=== PATIENT | female | born 2005 | race Caucasian/White ===

== ENCOUNTER 2024-05-02 08:24 | Outpatient (AMB) | payer MEDICAID, SELFPAY ==
[2024-05-02 08:36] VITALS: BP 113/78; PULSE 92; RESP 16; TEMP 36.8; O2SAT 99; BMI 34.0
--- NOTE | 2024-05-02 08:36 | AMB.GYNCLNOT ---
Vital Signs 05/02/24 08:36 Height 1.24 m Height Method Stated Weight 52.673 kg Weight Measurement Method Standing Scale BMI 34.0 BP 113/78 Blood Pressure Source Automatic Cuff Blood Pressure Location Left Upper Arm Position Sitting Respiration 16 Pulse 92 Pulse Source Monitor Temp 98.2 F Temp Source Oral Pulse Oximetry (%) 99 Oxygen Delivery Method Room Air Allergies/Home Meds Allergies & Medications Allergies No Known Allergies Allergy (Verified 05/02/24 08:37) Medication Reconciliation No Known Home Medications 05/02/24 [History Confirmed 05/02/24] Intake Visit Data Collection New Patient or Established: Established Patient (seen at [facility] within 3 years) Reason for Visit:: ER Follow up Ovarian Cysts Seen by Clinical Staff ONLY (RN/MA): No Community Development Technician Required: No Do You Feel Safe at Home: Yes Authorities Contacted: N/A PCP or OBGYN visit in last 3 months: Yes Date of Last PCP or OBGYN visit: 04/16/24 Hx Now: No Are you currently on any form of Control: No Last menstrual period: 04/25/24 Pain Present Currently: No Pain Scale Used: Lantigua-Nina/Numerical Pain scale:: 0 Smoking Status Smoking Status: Never smoker 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 1. Little interest or pleasure in doing things: not at all 2. Feeling down, depressed, or hopeless: not at all Total score: 0 PHQ-9 3. Trouble falling or staying asleep, or sleeping too much: Not at all 4. Feeling tired or having little energy: Not at all 5. Poor appetite or overeating: Not at all 6. Feeling bad about yourself - or that you are a failure or have let yourself or your family down: Not at all 7. Trouble concentrating on things, such as reading the newspaper or watching television: Not at all 8. Moving or speaking so slowly that other people could have noticed? - Or the opposite - being so fidgety or restless that you have been moving around a lot more than usual: not at all 9. Thoughts that you would be better off or of hurting yourself in some way: Not at all Total score: 0 If you checked off any problems, how difficult have these problems made it for you to do your work, take care of things at home, or get along with other people?: not difficult at all Source: Developed by Drs. Dick Tang, Mesha Cobb, Raymon Vasquez and colleagues, with an educational bipin from [employer]. Depression screen completed yes Social History Living Situation History Marital Status: Single Lives With: Family Housing: House Tobacco History Smoking Status: Never smoker Alcohol History Alcohol Intake: Current Alcohol Intake Frequency: holidays/special occasions only Domestic Abuse History Do You Feel Safe at Home: Yes Past Medical History Past Medical History Have you ever been diagnosed with any of the following: Cardiology Problems Congestive Heart Failure: No Respiratory Problems Chronic Obstructive Pulmonary Disease (COPD): No Genital/Urinary Problems Renal Disease: No Endocrine Problems Diabetes Mellitus Type 1: No Diabetes Mellitus Type 2: No Other Problems Anesthesia Reactions: No Organ Transplant: No MRSA: No VRSA: No Vancomycin-Resistant Enterococci: No Clostridium Difficile: No Cancer: No History of Present Illness HPI Narrative History of Present Illness The patient presents with a history of acute pelvic pain that occurred at 5 a.m. The pain was localized to the lower abdominal region. She initially sought treatment at [facility], where cysts were identified, but no medication was prescribed. Due to persistent pain, she subsequently visited [facility] on the same day. At [facility], both ultrasound and CT scans were performed, revealing cysts on both ovaries, described as little balls with piercings. The pain episode occurred right after her menstrual period. This is the first occurrence of such pain for the patient. Associated symptoms include nausea and vomiting. The patient denies any urinary tract infection symptoms. Upon examination, the pain was noted to be more pronounced on the left side. The patient has a history of one uncomplicated resulting in a child who is now 2-3 years old. She denies any history of fertility issues or difficulty becoming . The patient is not currently using any control, thyroid medication, or other medications. Review of Systems Review of Systems Systems Reviewed: All systems reviewed, normal except as documented Exam General Limitations: no limitations General Appearance: alert, in no apparent distress, comfortable, cooperative, healthy appearing, well developed and well groomed Head Head exam: atraumatic, normocephalic and normal inspection Neck Neck exam: Present normal inspection, full ROM and trachea midline Chest Chest inspection: Present normal inspection and symmetric chest wall rise Abdominal Abdominal exam: Present soft and normal bowel sounds Extremities Extremities exam: Present normal inspection and full ROM Back Back exam: Present normal inspection and full ROM Psych Psychiatric exam: Present normal affect and normal mood Skin Skin exam: Present warm, dry, intact and normal color Assessment & Plan Diagnosis / Problem List (1) Bilateral ovarian cysts: Status: Acute Plan: Ovarian Cysts Patient presented with acute lower abdominal pain at 5 AM, prompting ER visits to both [facility] and [facility] on the same day. Both facilities performed imaging studies (ultrasound and CT scan) which revealed cysts on both ovaries. The cysts were described as little ball[s] with piercings in it. The pain occurred right after the patient's menstrual period. Given the bilateral nature of the cysts and the timing of pain, PCOS was suggested as a possible diagnosis by the ER. However, the patient has no history of fertility issues, which is atypical for PCOS. On physical examination, the left side was more painful, but pressure on the right side elicited more discomfort, suggesting the right-sided cyst may be larger. The patient also reported associated nausea and vomiting. - Order blood tests to evaluate hormone levels - Obtain and review imaging studies from [facility] - Schedule follow-up appointment in 2 weeks to review test results and develop a treatment plan - Consider low-dose control pills (e.g., Judith) for cyst prevention after test results are reviewed - Monitor cysts with ultrasounds every 3 months if no immediate intervention is required - Surgical intervention to be considered only if pain recurs monthly for 2-3 months, becomes severe enough to warrant repeated ER visits, cysts show significant growth, or if the patient is trying to conceive Additional Assessment Medical Decision Making Stefanie Dorsey is a young adult female with a history of one , presenting with bilateral lower abdominal pain that started after her recent menstrual period. The patient was initially seen at [facility], where cysts were identified, and subsequently at [facility] on the same day due to persistent pain. Both ERs performed imaging studies, with [facility] conducting both ultrasound and CT scan. The findings suggest bilateral ovarian cysts, described as little balls with piercings on both ovaries. The differential diagnosis includes Polycystic Ovary Syndrome (PCOS), which was suggested by the [facility] ER, and functional ovarian cysts. However, PCOS is less likely given the patient's history of uncomplicated and the typical onset of PCOS in adolescence. The clinician plans to review imaging from [facility] and perform hormone blood tests to further evaluate the condition. The physical examination revealed more tenderness on the left side, suggesting a possibly larger cyst on that side. The clinician is considering watchful waiting with periodic ultrasounds every 3 months if the cysts remain stable, as surgery is typically reserved for persistent, severe pain or fertility concerns. Preventive Medicine: Patient Counseling: Sexual Health, Contraception, and Family Planning Your sexual and reproductive health is important, and there are several steps you can take to protect yourself and make informed decisions. Safe Sex and STD Prevention: ? Condom Use: Consistent use of condoms during vaginal, anal, and oral sex reduces the risk of sexually transmitted diseases (STDs), including HIV. ? Regular Testing: Routine STD testing is important, especially if you or your partner have multiple partners. Early detection helps prevent complications. ? Open Communication: Discuss your sexual health and testing history with your partner(s) to make safer choices together. Contraceptive Options: ? Barrier Methods: Condoms (male and female) provide protection against both and STDs. ? Hormonal Methods: control pills, patches, vaginal rings, injections, and implants prevent when used consistently and correctly. ? Long-Acting Reversible Contraception (LARC): IUDs (hormonal and non-hormonal) and implants provide long-term, highly effective protection. ? Permanent Contraception: Options like tubal ligation or vasectomy are available for those who do not wish to have more children. Emergency Contraception (EC): ? Emergency contraception (e.g., Plan B or Umm) can be used after unprotected sex or contraceptive failure and is most effective when taken within 72 hours (up to 5 days for some options). ? EC does not protect against STDs, so follow up with testing if exposure is a concern. Family Planning and Pre- Health: ? If you are planning to become , begin taking folic acid 1 mg daily to reduce the risk of neural tube defects. ? Avoid teratogenic drugs (medications that can harm a developing baby) and discuss any prescription medications with your healthcare provider before . ? It is recommended to space pregnancies at least 18 months apart to support your health and reduce -related risks. Office Procedures OB Clinic LOC & Office Proc's Nursing/Assessment Patient Status: Established Patient OB Clinic Nursing Assessment: BP Monitoring, Medication Reconciliation, Update PMH in EMR and Vital Signs OB Clinic Coordination of Care: Consent,records obtained, informed consent, Education Simp Pt/Fam, Lab and Imaging orders and Staff clarify orders Established Patient Charge Established Patient Point Assignment: 90 Established Patient Point Charge: EP Level 3 (80-115)
== END 2024-05-02 08:50 | disposition home or self-care (01) ==
LOC: HODSOBC 08:24
PROVIDERS: PCP Obstetrics & Gynecology; Referring Provider Obstetrics & Gynecology; Supervising Provider Obstetrics & Gynecology; Visit Provider Obstetrics & Gynecology
DX: N83.202 Unspecified ovarian cyst, left side (principal); N83.201 Unspecified ovarian cyst, right side
CPT/HCPCS: 99213; G0463

== ENCOUNTER 2024-05-24 15:31 | Outpatient (AMB) | payer MEDICAID, SELFPAY ==
--- NOTE | 2024-05-24 15:32 | AMB.GYNCLNOT ---
Vital Signs 05/24/24 16:02 Height 1.24 m Height Method Stated Weight 91.399 kg Weight Measurement Method Standing Scale BMI 59.4 BP 129/83 Blood Pressure Source Automatic Cuff Blood Pressure Location Left Upper Arm Position Sitting Respiration 16 Pulse 105 H Pulse Source Monitor Temp 96.3 F L Temp Source Oral Pulse Oximetry (%) 99 Oxygen Delivery Method Room Air Allergies/Home Meds Allergies & Medications Allergies No Known Allergies Allergy (Verified 05/24/24 16:04) Medication Reconciliation No Known Home Medications 05/02/24 [History Confirmed 05/24/24] Intake Visit Data Collection New Patient or Established: Established Patient (seen at [facility] within 3 years) Reason for Visit:: Telemed- Lab results Consent obtained for Telemed Visit: Yes Seen by Clinical Staff ONLY (RN/MA): No Bearingizer Required: No Do You Feel Safe at Home: Yes Authorities Contacted: N/A PCP or OBGYN visit in last 3 months: Yes Hx Now: No Are you currently on any form of Control: No Pain Present Currently: No Pain Scale Used: Lantigua-Nina/Numerical Pain scale:: 0 Smoking Status Smoking Status: Never smoker Questioned Documents Examiner history Questioned Documents Examiner History Menstrual regularity: regular Flow: normal Monthly: Yes Menopausal: No Currently sexually active: Yes Questionnaires Covid-19 Vaccine Questionnaire Has patient been vacinated for Covid-19 Have you been vacinated for Covid-19: Yes PHQ-9 PHQ-2 Over the last 2 weeks, how often have you been bothered by any of the following problems? 1. Little interest or pleasure in doing things: not at all 2. Feeling down, depressed, or hopeless: not at all Total score: 0 PHQ-9 3. Trouble falling or staying asleep, or sleeping too much: Not at all 4. Feeling tired or having little energy: Not at all 5. Poor appetite or overeating: Not at all 6. Feeling bad about yourself - or that you are a failure or have let yourself or your family down: Not at all 7. Trouble concentrating on things, such as reading the newspaper or watching television: Not at all 8. Moving or speaking so slowly that other people could have noticed? - Or the opposite - being so fidgety or restless that you have been moving around a lot more than usual: not at all 9. Thoughts that you would be better off or of hurting yourself in some way: Not at all Total score: 0 If you checked off any problems, how difficult have these problems made it for you to do your work, take care of things at home, or get along with other people?: not difficult at all Source: Developed by Drs. Dick Tang, Mesha Cobb, Raymon Vasquez and colleagues, with an educational bipin from [employer]. Depression screen completed yes Social History Living Situation History Lives With: Family Housing: House Tobacco History Smoking Status: Never smoker Alcohol History Alcohol Intake: Current Alcohol Intake Frequency: holidays/special occasions only Domestic Abuse History Do You Feel Safe at Home: Yes Past Medical History Past Medical History Have you ever been diagnosed with any of the following: Cardiology Problems Congestive Heart Failure: No Respiratory Problems Chronic Obstructive Pulmonary Disease (COPD): No Genital/Urinary Problems Renal Disease: No Endocrine Problems Diabetes Mellitus Type 1: No Diabetes Mellitus Type 2: No Other Problems Anesthesia Reactions: No Organ Transplant: No MRSA: No VRSA: No Vancomycin-Resistant Enterococci: No Clostridium Difficile: No Cancer: No History of Present Illness HPI Narrative Virtual visit/Telemed The patient, Stefanie Dorsey, previously underwent an abdominal ultrasound and CT scan at [facility], which revealed multiple follicular cysts. A PCOS blood test panel was also performed, showing LH, FSH, and prolactin levels within normal limits, not indicative of PCOS. The patient reports feeling better overall, with occasional cramps that are less severe than usual. She experienced a normal menstrual period since her last visit, which was not particularly painful. Assessment & Plan Diagnosis / Problem List (1) Bilateral ovarian cysts: Status: Acute Plan: Patient underwent abdominal ultrasound and CT scan at [facility], which revealed multiple follicular cysts. PCOS blood test panel, including LH, FSH, and prolactin, were within normal limits, ruling out full-blown PCOS. Patient reports improvement in pain and cramps, with a normal, less painful menstrual period since last visit. Current presentation is consistent with ovarian cysts without meeting diagnostic criteria for PCOS. - Wait to complete 3 months of observation - Repeat ultrasound to reassess cysts - If cysts persist, plan for surgical removal - If cysts resolve, no further intervention required Office Procedures OB Clinic LOC & Office Proc's Nursing/Assessment Patient Status: Established Patient OB Clinic Nursing Assessment: Medication Reconciliation and Update PMH in EMR OB Clinic Coordination of Care: Complex Care and Chronic Disease 1-5, Consent,records obtained, informed consent and Results/Orders obtained Established Patient Charge Established Patient Point Assignment: 50 Telehealth If patient is seen using Teleconference methods, complete New/Est section, but DO NOT jaz points only jaz the correct Telemed visit type Telemed Phone/Video with patient at home & Dr,PA,THREADER: Yes
[2024-05-24 16:02] VITALS: BP 129/83; PULSE 105; RESP 16; TEMP 35.7; O2SAT 99; BMI 59.4
== END 2024-05-24 15:59 | disposition home or self-care (01) ==
LOC: HODSOBC 15:31
PROVIDERS: Supervising Provider Obstetrics & Gynecology; Visit Provider Obstetrics & Gynecology
DX: N83.02 Follicular cyst of left ovary (principal); N83.01 Follicular cyst of right ovary
CPT/HCPCS: 99212; G0463

== ENCOUNTER 2024-07-19 08:39 | Outpatient (AMB) | payer MEDICAID, SELFPAY ==
[2024-07-19 08:50] VITALS: BP 111/71; PULSE 82; RESP 18; TEMP 36.2; O2SAT 98; BMI 33.7
--- NOTE | 2024-07-19 08:50 | GYNCLNT_ITS ---
Vital Signs 07/19/24 08:50 Height 1.24 m Height Method Stated Weight 51.88 kg BMI 33.7 BP 111/71 Blood Pressure Source Automatic Cuff Blood Pressure Location Left Upper Arm Position Sitting Respiration 18 Pulse 82 Pulse Source Monitor Temp 97.2 F Temp Source Oral Pulse Oximetry (%) 98 Oxygen Delivery Method Room Air Allergies/Home Meds Allergies & Medications Allergies No Known Allergies Allergy (Verified 07/19/24 08:51) Medication Reconciliation medroxyprogesterone 10 mg tablet 10 mg PO QDAY 10 days #10 tabs 07/19/24 [Rx] Intake Visit Data Collection New Patient or Established: Established Patient (seen at [facility] within 3 years) Reason for Visit:: FOLLOW UP Seen by Clinical Staff ONLY (RN/MA): No Weight And Balance Control Agent Required: No Do You Feel Safe at Home: Yes Authorities Contacted: N/A PCP or OBGYN visit in last 3 months: Yes Date of Last PCP or OBGYN visit: 05/24/24 Hx Now: No Are you currently on any form of Control: No Last menstrual period: 06/03/24 Pain Present Currently: No Pain Scale Used: Lantigua-Nina/Numerical Pain scale:: 0 Smoking Status Smoking Status: Never smoker 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 History Menstrual regularity: regular Flow: normal Monthly: Yes How many days does period last: 5 Age at menarche: 10 Currently sexually active: Yes 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 1. Little interest or pleasure in doing things: not at all 2. Feeling down, depressed, or hopeless: not at all Total score: 0 PHQ-9 3. Trouble falling or staying asleep, or sleeping too much: Not at all 4. Feeling tired or having little energy: Not at all 5. Poor appetite or overeating: Not at all 6. Feeling bad about yourself - or that you are a failure or have let yourself or your family down: Not at all 7. Trouble concentrating on things, such as reading the newspaper or watching television: Not at all 8. Moving or speaking so slowly that other people could have noticed? - Or the opposite - being so fidgety or restless that you have been moving around a lot more than usual: not at all 9. Thoughts that you would be better off or of hurting yourself in some way: Not at all Total score: 0 If you checked off any problems, how difficult have these problems made it for you to do your work, take care of things at home, or get along with other people?: not difficult at all Source: Developed by Drs. iDck Tang, Mesha Cobb, Raymon Vasquez and colleagues, with an educational bipin from [employer]. Depression screen completed yes Social History Living Situation History Lives With: Family Housing: House Tobacco History Smoking Status: Never smoker Alcohol History Alcohol Intake: Current Alcohol Intake Frequency: holidays/special occasions only Domestic Abuse History Do You Feel Safe at Home: Yes History of Present Illness HPI Narrative Stefanie Dorsey presents for follow-up regarding concerns of possible polycystic ovary syndrome (PCOS). The patient reports experiencing heavy menstrual cycles since her last visit. She is currently not taking any medications or control pills. The patient expresses uncertainty about her plans for in the next one to two years. She inquires about her current ability to conceive, given her symptoms and recent test results. The patient also shows interest in exploring treatment options to manage her heavy menstrual cycles and regulate her cycle length, expressing a preference for alternatives to control pills if p ossible. Review of Systems Genitourinary: Positive for heavy menstrual cycles. Exam General General Appearance: alert, in no apparent distress and healthy appearing Head Head exam: atraumatic Neck Neck exam: Present normal inspection and trachea midline Chest Chest inspection: Present normal inspection and symmetric chest wall rise External exam: Present normal external exam; Absent tenderness Neuro Neurological exam: Present oriented X3 Psych Psychiatric exam: Present normal affect and normal mood Results Objective Laboratory: - Date: 05/09/2024 (reported 05/31/2024) - TSH: Normal - PCOS profile: - Testosterone: Normal - Free testosterone: Within range - LH: Normal - FSH: Normal - Prolactin: Normal - Alpha-hydroxy: Normal - DHEA: Normal - SHBG: Normal - Estradiol: Normal Office Procedures OB Clinic LOC & Office Proc's Nursing/Assessment Patient Status: Established Patient OB Clinic Nursing Assessment: Medication Reconciliation, Update PMH in EMR and Vital Signs OB Clinic Coordination of Care: Complex Care and Chronic Disease 1-5, Education Complex Pt/Fam, Consent,records obtained, informed consent, Lab and Imaging orders and Staff clarify orders Miscellaneous Interventions: Blood/Urine Collection Established Patient Charge Established Patient Point Assignment: 135 Established Patient Point Charge: EP Level 4 (120-155) Assessment & Plan Diagnosis / Problem List (1) Bilateral ovarian cysts: Status: Acute (2) Abnormal uterine and vaginal bleeding, unspecified: Status: Acute Plan Problem List - Irregular menstrual cycles - Heavy menstrual bleeding Assessment Patient presents with irregular menstrual cycles and heavy periods. PCOS profile, including TSH, testosterone, free testosterone, LH, FSH, prolactin, alpha-hydroxy, DHEA, SHBG, and estradiol, was performed on 05/09 and reported on 05/31, with all results within normal range. Despite symptomatic presentation, the absence of laboratory abnormalities precludes a full PCOS diagnosis. Patient is currently not on any medications and fertility status is undetermined. Plan - Start control pills for 3-6 months to reset menstrual cycles - Track menstrual cycles using an pedro or paper calendar for 3 months - Follow up in 3 months to assess effectiveness of treatment - Alternative option: Provera (10-10 regimen) if patient declines control pills - Schedule 3-month follow-up appointment
== END 2024-07-19 09:56 | disposition home or self-care (01) ==
LOC: HODSOBC 08:39
PROVIDERS: PCP Obstetrics & Gynecology; Referring Provider Obstetrics & Gynecology; Supervising Provider Obstetrics & Gynecology; Visit Provider Obstetrics & Gynecology
DX: N83.202 Unspecified ovarian cyst, left side (principal); N83.201 Unspecified ovarian cyst, right side; N93.9 Abnormal uterine and vaginal bleeding, unspecified
CPT/HCPCS: 99214; G0463